=== PATIENT | female | born 1955 | race Caucasian/White ===

== ENCOUNTER 2021-08-25 10:17 | Outpatient (CLI) | payer MEDICAID, SELFPAY ==
--- NOTE | 2021-08-25 | DI.CT_ITS ---
Exam(s) CT ABDOMEN PELVIS W EXAM: CT ABDOMEN PELVIS W CLINICAL HISTORY: ABD PAIN R10.9 LT FLANK PAIN, FAM HX CANCER, HAS PRECANCEROUS CELLS. TECHNIQUE: Imaging Protocol: Axial computed tomography images with coronal and sagittal reformatted images were created and reviewed CONTRAST MATERIAL: Intravenous: Omnipaque 100cc Oral: Yes. Oral contrast was administered for bowel opacification. COMPARISON: No exams were available for comparison FINDINGS: VISUALIZED LUNG BASES: No nodules nor pleural effusions evident. ABDOMEN: There is no ascites. LIVER: There are no focal hepatic lesions evident . GALLBLADDER/BILIARY: The gallbladder surgically absent. There is no dilatation of intrahepatic ducts . CBD is not dilated. PANCREAS: There is a 6 x 5 millimeter hypodensity in the the pancreas at the junction of body and hetal l is either cyst or thank intra pancreatic cystic neoplasm. Pancreatic duct is not dilated SPLEEN: Spleen is not enlarged. No obvious intrasplenic lesions. Splenic and portal veins are paten t. ADRENALS: There are no significant adrenal masses. KIDNEYS:No cysts evident. No solid renal masses. No calculi nor hydronephrosis.. ABDOMINAL AORTA: Abdominal aorta is not enlarged. LYMPH NODES:There is no retroperitoneal nor paraaortic adenopathy. ABDOMINAL WALL: No evidence of significant anterior abdominal wall nor inguinal hernia. GI: There is no evidence of bowel obstruction, free air, nor abscess. There is an area of focal narr owing in rectosigmoid, either due to under distension or possible significant finding (series 4/image [id number]). PELVIS: GI: Appendix is difficult to identify but there is no obvious acute appendicitis.No evidence of sigmo id diverticulitis. LYMPH NODES: There is no intrapelvic nor inguinal adenopathy. REPRODUCTIVE: Uterus appears unremarkable. No abnormal adnexal masses. No free fluid in the pelvis. URINARY BLADDER: No calculi nor obvious masses evident OSSEOUS: Degenerative anterolisthesis of L3 upon L4 due to facet joint arthropathy. Vascular phenome non is seen within the L4-5 disc space. IMPRESSION: 1. The gallbladder surgically absent. The biliary tree is not dilated. 2. There is 6 x 5mm hypodensity in the pancreas at junction of body and tail, either small cyst or cy stic pancreatic neoplasm. Recommend repeat scan in 6 months. 3. No significant renal findings, given the history here. 4. Appendix is difficult to identify on this study. There is no evidence of obvious acute appendicit is. Other findings as above. RADIATION DOSE DELIVERED: 880.5mGy.cm Total DLP DATA REPOSITORY: All CT scans at this facility are submitted to the National Radiology Data Registry (NRDR) Dose Index Registry (DIR) with the [employer] (ACR). RADIATION OPTIMIZATION: All CT scans at this facility use at least one of these dose optimization te chniques: automated exposure control; mA and/or kV adjustment per patient size (includes targeted exa ms where dose is matched to clinical indication); or iterative reconstruction.
[2021-08-25] MEDS: Breeza Beverage 473 ML BTL PO (11:43)
[2021-08-25 11:44] LABS: Abs Immature Grans 0.02 10^3/uL (0.0-0.06); Absolute Basophil Count 0.02 10^3/uL (0.0-0.2); Absolute Eosinophil Count 0.12 10^3/uL (0.0-0.7); Absolute Lymphocyte Count 1.68 10^3/uL (1.2-3.4); Absolute Monocyte Count 0.39 10^3/uL (0.1-0.8); Absolute Neutrophil Count 2.78 10^3/uL (1.2-6.7); Basophils % 0.4; Eosinophils % 2.4; HCT 43.3 % (36.0-46.0); HGB 14.2 g/dL (11.2-15.7); Immature Grans % 0.4; Lymphocytes % 33.5; MCH 30.4 pg (27.0-33.0); MCHC 32.8 % (32.0-36.0); MCV 92.7 fL (80-95); MPV 8.9 fL (8.0-11.0); Monocytes % 7.8; Neutrophils % 55.5; Nucleated RBC 0 %; Platelet Count 281 10^3/uL (130-400); RBC 4.67 10^6/uL (3.93-5.22); RDW 12.4 % (11.7-14.6); RDW-SD 42.4 fL; WBC 5.01 10^3/uL (4.4-10.8)
[2021-08-25] MEDS: Omnipaque 350 MG/ML 50 ML BTL PO (11:44)
[2021-08-25 11:58] LABS: ALT 25 U/L (14-59); AST 18 U/L (15-37); Albumin 4.4 g/dL (3.4-5.0); Alkaline Phosphatase 87 U/L (46-116); Anion Gap 5.6 mmol/L (3-11); BUN 11 mg/dL (7-18); Bilirubin, Total 0.5 mg/dL (0.2-1.0); CO2 33.4 mmol/L (21.0-32.0); CREATININE 0.9 mg/dL (0.55-1.02); Calcium 9.6 mg/dL (8.5-10.1); Chloride 104 mmol/L (98-107); Glucose 87 mg/dL (74-106); Potassium 3.7 mmol/L (3.5-5.1); Sodium 143 mmol/L (136-145); Total Protein 8.2 g/dL (6.4-8.2)
[2021-08-25] MEDS: Omnipaque 350 MG/ML 100 ML BTL IV (14:00)
[2021-08-25] MEDS: Normal Saline - Diluent 50 ML VIAL IV (14:00)
[2021-08-25 19:36] LABS: Lipase 181 U/L (73-393)
== END 2021-08-25 10:37 ==
PROVIDERS: Visit Provider Physician Assistant Medical
DX: R10.9 Unspecified abdominal pain (principal); R93.5 Abnormal findings on diagnostic imaging of other abdominal regions, including retroperitoneum
CPT/HCPCS: 80053; 83690; 74177; 85025; J3490; Q9967

== ENCOUNTER 2021-09-22 02:54 | Outpatient (CLI) | payer MEDICAID, SELFPAY ==
[2021-09-22 13:13] LABS: Source Nasal/Nares
[2021-09-22 15:28] LABS: COVID-19 PCR Negative (Negative)
== END 2021-09-22 02:55 | disposition home or self-care (01) ==
LOC: LBO 02:54
PROVIDERS: PCP Family Medicine; Visit Provider Surgery
DX: Z20.822 Contact with and (suspected) exposure to COVID-19 (principal); Z01.818 Encounter for other preprocedural examination
CPT/HCPCS: 87635

== ENCOUNTER 2021-09-24 09:57 | Day surgery (SDC) | payer MEDICAID, SELFPAY ==
--- NOTE | 2021-09-22 14:46 | NUR.NOTE ---
Pt. verbalized concern over staying in the hospital 4-5 days, stated the when she spoke with the MD, that it could be a possibility. Per MD note, it did not mention anything regarding staying overnight, this RN spoke with Sidra RUTHERFORD at [facility] regarding this concern, Sidra stated she spoke with patient at length stating she is scheduled for a colonoscopy and a gastroscopy, and if there are polyps they will be removed at that time, if there a complication such as a perforation, that would require a longer stay. This was also restated by myself to patient, and that she would also see MD prior to procedure to validate concerns. Nursing Note:
--- NOTE | 2021-09-24 06:53 | ENDO_ITS ---
Date of service: 09/24/21 Time of Service: 11:37 Endoscopy Report DATE OF PROCEDURE: 09/24/21 PRE-OP DIAGNOSIS: Epigastric pain and abnormal CT scan POST-OP DIAGNOSIS: other (gastritis and mild esophagitis, colon polyps) PROCEDURE: 1. EGD with biopsies 2. Colonoscopy with polypectomy SURGEON: Glenna Vallejo ANESTHESIA TYPE: General:No Airway ESTIMATED BLOOD LOSS: 3 PATHOLOGY: other (Antrum bx, GE junction bx, desscending and sigmoid polyp) COMPLICATIONS: None DISPOSITION: same day INDICATIONS: A CT scan was done looking for diverticulitis. It was negative for diverticulitis but did show possible narrowing in the rectosigmoid area. I did review the CT scan myself. I do not see an actual mass. She does have a past history of having a polyp in 2003. She never had a follow-up colonoscopy. It does not look like there is a family history of colon cancer. She does have a history of several other cancers in her family. She suffers from IBS which is a chronic issue. She does have the occasional bright red blood on the tissue paper. She also has been complaining of increased bloating and on exam she is tender in the right upper quadrant and epigastric area. She is under increased stress due to her son having been diagnosed brain tumor. She will be his caregiver as he recovers from his surgery towards the end of September. I discussed with her doing a colonoscopy due to the abnormal CT scan and her history of polyps but also adding an upper endoscopy as she is quite tender in the epigastric area on exam. Both procedures were discussed in detail. We reviewed risks benefits and complications. Risks, benefits and complications have been reviewed. Complications include but are not limited to bleeding, pain, perforation, missed small lesion/polyp, sore throat, aspiration and adverse reaction to the medications. Questions were entertained and answered to their satisfaction and they wished to proceed. No guarantees were given or implied. Proceed with colonoscopy and upper endoscopy. PREP: Miralax/Dulcolax PROCEDURE START TIME: 11:37 PROCEDURE END TIME: 12:04 COLONOSCOPY RETRACTION TIME: 11 minutes FINDINGS: Upper- inflammation of the stomach and mild inflammation of the distal esophagus Lower- 2 small polyps PROCEDURE DESCRIPTION: After informed consent was obtained the patient was take to the procedure room and placed in a supine position. Monitors were applied and a time out was done. The patients name, date of , procedure type, allergies to medications and metal in their body was reviewed. A bite block was placed and the patient was sedated. Once sedated and comfortable the gastroscope was advanced through the oropharynx which was grossly normal into the esophagus. The proximal and mid- esophagus were normal. In the distal esophagus there was mild inflammation noted. The scope was advanced into the stomach and through the pylorus into the 3rd portion of the duodenum. The duodenum was noted to be normal. The scope was retracted back into the stomach. There was inflammation noted in the antrum and body. Biopsies were done to rule out H. pylori. There were no ulcers. The scope was retro-flexed. The cardia and fundus were noted to be normal. There was no hiatal hernia noted. The scope was retracted back into the esophagus and biopsies were done of the GE junction to rule out Beyer's. The Z line was regular. The GE junction was at 35 cm. While the patient was still sedated they were placed in a left decubitous position. A rectal exam was done. External exam was normal. Internal exam revealed a normal sphincter tone and no palpable masses. The prostate []. The scope was then introduced and retro-flexed. No internal hemorrhoids, masses or polyps were identified on retroflexion. The scope was then advanced to the cecum without difficulty. The ileocecal valve and appendiceal orifice were identified. The prep was adequate. The scope was then slowly retracted over 11 minutes back into the rectum. Polyps were removed with cold forceps in the descending colon and sigmoid colon. There was no diverticulosis noted. The scope was removed and the patient was woken up and taken back to Same day surgery in stable condition. The patient tolerated the procedure well and there were no immediate complications. Follow up: will depend on final pathology
--- NOTE | 2021-09-24 06:55 | PDOC.DSDIS_ITS ---
Discharge Plan Disposition Patient Disposition: HOME Condition: Good Discharge Details Reason For Visit: [place]/EGD Attending Provider: Glenna Vallejo Primary Care Provider: Bee Perkins Home Meds and New Rx's Prescriptions: New omeprazole 40 mg capsule,delayed release(DR/EC) 40 mg PO DAILY Qty: 30 RF: 3 Discontinued bisacodyl [Dulcolax (bisacodyl)] 5 mg tablet,delayed release (DR/EC) 5 mg PO ONCE Qty: 4 RF: 0 polyethylene glycol 3350 17 gram/dose powder 17 g PO ONCE Qty: 238 RF: 0 Discharge Instructions Instructions: Diet for Stomach Ulcers and Gastritis (ED), Gastritis (DC), Esophagitis (DC), Colorectal Polyps (DC) Additional Instructions: Findings: Inflammation of the stomach and esophagus 2 small polyps Follow up: depends on pathology results Please call if you develop: fevers >101.5 Nausea or Vomiting Abdominal pain that is not transient Rectal bleeding that is more then a tbsp A hard abdomen and inability to pass gas DAY SURGERY UNIT POST ENDOSCOPY INSTRUCTIONS Instructions for everyone who is given Anesthesia: For your safety, please do the following for the next 24 Hours: a. Do not drive or operate dangerous equipment b. Do not drink alcohol beverages or use any recreational drugs for the first 24 hours or while taking pain medications. The medications in your body may have a reaction that can be dangerous. c. Do not make any important decisions or sign any important papers 1. Generally there are no restrictions on your activity after a day or so has gone by, but you may feel a bit fatigued for a few days. 2. After you arrive home you may have a light meal and return to a normal diet as you can tolerate it without feeling sick to your stomach. 3. After surgery, you may feel pain or discomfort. This should be only transient, but if it persists please contact your doctor. 4. If there are any questions regarding the findings of your procedure, please feel free to contact your doctor. 6. If you are unable to contact your doctor with a problem, contact the hospital at [phone]. 7. Continue all your regular medications unless directed otherwise. I understand the above instructions and have no questions. Signature of Patient or Responsible Adult Escort Date/Time Name of Responsible Adult Escort Signature of Nurse Date/Time Activity:: Activity as Tolerated Diet:: low acid Discharge Orders Discharge Orders: Discharge Order (Routine); Ordered 09/24/21 Ordered By: Glenna Vallejo
--- NOTE | 2021-09-24 07:33 | W.ANESPRE ---
General Info Date of Service Date Performed: 09/24/21 Height: 5 ft 4 in Weight: 70.76 kg Body Mass Index (BMI): 26.7 Surgical Procedure: Operation Date: 09/24/21 11:05 Proposed Procedures Side Surgeon p Colonoscopy/Gastroscopy Glenna Vallejo MD Meds Allergies and Home Medications Allergies Allergy/AdvReac Type Severity Reaction Status Date / Time aspirin Allergy Severe unknown Verified 09/24/21 10:07 Current Visit Medications: Current Medications Generic Name Dose Route Start Last Admin Trade Name Freq PRN Reason Stop Dose Admin Hyoscyamine Sulfate 0.125 mg 09/24/21 06:55 Hyoscyamine 0.125 Mg Sl/Oral/Chew SL DIRECTED PRN Ringer's Solution 1,000 mls @ 80 mls/hr 09/24/21 06:00 IV 10/07/21 23:59 INFUSION MOMO IV Miscellaneous Supplies 1 each 09/24/21 06:00 Iv Access IV 10/07/21 23:59 DIRECTED MOMO Ondansetron HCl 4 mg 09/24/21 06:55 Ondansetron 4 Mg/2 Ml Vial IVP Q4H PRN PRN Nausea / Vomiting Sodium Chloride 0 ml 09/24/21 06:00 Normal Saline Flush 10 Ml Syr IV 10/07/21 23:59 PRN PRN Sodium Chloride 0 ml 09/24/21 06:00 Normal Saline 10 Ml Vial IJ 10/07/21 23:59 DIRECTED PRN Sterile Water 0 ml 09/24/21 06:00 Water,Injection,Sterile 10 Ml Vial IJ 10/07/21 23:59 DIRECTED PRN PFSH Active Problems Active Problems: Problem Status Onset Code Abnormal CT scan, colon R93.3 Abdominal pain R10.9 Back pain M54.9 Medical History Active Problem List Abnormal CT scan, colon (Acute) Abdominal pain (Acute) Back pain (Acute) Medical History Fibromyalgia Hx of adenomatous colonic polyps Hypoglycemia IBS (irritable bowel syndrome) Shoulder pain Surgical History Surgical History S/P colonoscopy S/P laparoscopic cholecystectomy Tobacco Smoking/Tobacco Use Status: Former Tobacco Use Alcohol Alcohol Intake: former Year quit: 2020 Details: stopped drinking to try and keep son sober Substance Use Substance use: Never Substance use type: does not use Vital Signs and Lab Results Lab Results Blood Type / Crossmatch: No Data to Display Complete Blood Count: White Blood Count 5.01 10^3/uL (4.4-10.8) 08/25/21 11:40 08/25/21 Red Blood Count 4.67 10^6/uL (3.93-5.22) 08/25/21 11:40 08/25/21 Hemoglobin 14.2 g/dL (11.2-15.7) 08/25/21 11:40 08/25/21 Hematocrit 43.3 % (36.0-46.0) 08/25/21 11:40 08/25/21 Platelet Count 281 10^3/uL (130-400) 08/25/21 11:40 08/25/21 Complete Metabolic Panel: Sodium Level 143 mmol/L (136-145) 08/25/21 11:40 08/25/21 Potassium Level 3.7 mmol/L (3.5-5.1) 08/25/21 11:40 08/25/21 Chloride Level 104 mmol/L (98-107) 08/25/21 11:40 08/25/21 Carbon Dioxide Level 33.4 mmol/L (21.0-32.0) H 08/25/21 11:40 08/25/21 Blood Urea Nitrogen 11 mg/dL (7-18) 08/25/21 11:40 08/25/21 Creatinine 0.9 mg/dL (0.55-1.02) 08/25/21 11:40 08/25/21 Estimated GFR/1.73 m2 >= 60.00 (mL/min/1.73m2) 08/25/21 11:40 08/25/21 Calcium Level 9.6 mg/dL (8.5-10.1) 08/25/21 11:40 08/25/21 Albumin 4.4 g/dL (3.4-5.0) 08/25/21 11:40 08/25/21 Glucose Level 87 mg/dL (74-106) 08/25/21 11:40 08/25/21 Liver Function Panel: Alanine Aminotransferase (ALT/SGPT) 25 U/L (14-59) 08/25/21 11:40 08/25/21 Aspartate Amino Transf (AST/SGOT) 18 U/L (15-37) 08/25/21 11:40 08/25/21 Coagulation Panel: No Data to Display Cardiac Panel: No Data to Display Arterial Blood Gas: No Data to Display Venous Blood Gas: No Data to Display Pancreas Panel: Lipase 181 U/L (73-393) 08/25/21 11:40 08/25/21 Thyroid Panel: No Data to Display Infectious Disease: Coronavirus (COVID-19)(PCR) Negative (Negative) 09/22/21 11:42 09/22/21 Coronavirus 2019 Source Nasal/Nares 09/22/21 11:42 09/22/21 Blood Cultures: No Data to Display Toxicology Panel: No Data to Display Anesthesia Assessment and Plan Anesthesia History Personal History: No History of Anesthesia Complications and Other (Prolonged emergence) Family History: No Family History of Anesthesia Complications Exercise Tolerance Exercise Tolerance: Metabolic Equivalents>4 Pertinent Negatives Pertinent Negatives: No Symptoms of GERD, No Major Cardiovascular Symptoms or Complaints, No Major Pulmonary Symptoms or Complaints and No History of CVA/TIA Cardiac & Pulmonary Exam Cardiac Exam: Normal S1/S2 Heart Sounds Pulmonary Exam: Clear Bilateral Breath Sounds Implantable Cardiac Device Does patient have a Pacemaker or an ICD?: No Airway Exam Known Difficult Airway: No Mallampati Class: 2 Mouth Opening: Normal (> 3cm) Thyromental Distance: Greater than 3 cm Neck Range of Motion: Full ROM Neck Circumference: Normal Teeth Condition: Generalized Poor Dentition (Post in front tooth) ASA Classification ASA Score: ASA 2 Emergency Case?: No NPO Status NPO Status: NPO Clears >2 hours, Solids >8 hours Anesthesia Plan Resuscitation Status: Full Code Anesthesia Technique: General Anesthesia Airway Planned: Natural Airway Monitors Used: Standard Monitors
[2021-09-24 10:17] VITALS: BP 103/82; PULSE 68; RESP 18; TEMP 36.3; O2SAT 98
[2021-09-24] MEDS: Lactated Ringers 1,000 ML 80 ML IV (10:43)
[2021-09-24 11:07] VITALS: BMI 26.7
--- NOTE | 2021-09-24 11:38 | STOM_PTH ---
PATIENT: Jojo Lofton LOC: [facility] U#:[id number] AGE/SX: 65/F ROOM: RE09/24/[address]: Glenna Vallejo MD : 1955 BED: DIS: 09/24/2021 SPEC #: [id number] RECD: 09/24/21 12:40 STATUS: ZULLY REQ #: [id number] BROOKE: 09/24/21 11:[address]: Glenna Valljeo DEPT: Surgical [facility]imen RECD BY: Elizabeth Martines ENTERED: 09/24/21 12:42 SP TYPE: STOMACH OTHR DR: Bee Perkins Tissues: 1 - STOMACH BIOPSY 2 - ESOPHAGUS BIOPSY 3 - BIOPSY BOWEL 4 - BIOPSY BOWEL Procedures: GROSS AND MICRO LEVEL 4 IMMUNOPEROXIDASE STAIN Comments: [id number]
[2021-09-24 12:12] VITALS: BP 123/78; PULSE 63; RESP 16; TEMP 36; O2SAT 97
[2021-09-24 12:42] VITALS: BP 111/74; PULSE 61; RESP 18; TEMP 36.3; O2SAT 100
--- NOTE | 2021-09-24 13:07 | W.ANESPOSTOP ---
Postoperative Evaluation Date, Time and Location Date Performed: 09/24/21 Time Performed: 13:09 Patient Location: Day Surgery Unit Vital Signs Most Recent Imported Vital Signs: Most Recent Vital Signs Temp Pulse Resp BP Pulse Ox 36.3 C L 61 18 111/74 100 09/24/21 12:42 09/24/21 12:42 09/24/21 12:42 09/24/21 12:42 09/24/21 12:42 Pain Score Most Recent Pain Score: Most Recent Pain Score Pain Level 0 09/24/21 12:42 Assessment Mental Status: Awake (Alert & Oriented to Patient Baseline) Airway and Respiratory Function: Patent airway with normal (patient baseline) respiratory exam Cardiovascular Function: Hemodynamically Stable Hydration Status: Adequately Hydrated Nausea & Vomiting: No Nausea or Vomiting Pain: Pt. Denies Any Pain Peripheral Nerve Block: Patient did not receive a nerve block
== END 2021-09-24 13:33 | disposition home or self-care (01) ==
LOC: SUR 09:58
PROVIDERS: PCP Family Medicine; Visit Provider Surgery
PROC: (CPT 45380; principal; 2021-09-24 11:00)
DX: R10.13 Epigastric pain (principal); K29.50 Unspecified chronic gastritis without bleeding; K63.5 Polyp of colon; K21.00 Gastro-esophageal reflux disease with esophagitis, without bleeding; Z86.010 Personal history of colon polyps; R93.3 Abnormal findings on diagnostic imaging of other parts of digestive tract; K22.70 Barrett's esophagus without dysplasia
CPT/HCPCS: 45380; 43239; 88305; 88361

== ENCOUNTER 2021-09-29 16:55 | Outpatient (REF) | payer MEDICAID, SELFPAY ==
[2021-09-29 18:55] LABS: Calculated LDL 125 mg/dL (<100); Cholesterol 236 mg/dL (<200); HDL Cholesterol 101 mg/dL (40-60); Triglyceride 54 mg/dL (<150)
[2021-10-01 09:40] LABS: HIV-1/2 Ag & Ab Screen Negative (Negative)
[2021-10-01 11:29] LABS: Hepatitis C Ab w Rflx HCV PCR Negative (Negative)
== END 2021-09-29 16:56 | disposition home or self-care (01) ==
LOC: NCHCN 16:55
PROVIDERS: PCP Family Medicine; Visit Provider Family Medicine
DX: Z11.4 Encounter for screening for human immunodeficiency virus [HIV] (principal); Z11.59 Encounter for screening for other viral diseases; Z13.220 Encounter for screening for lipoid disorders
CPT/HCPCS: 80061; 86803; 87389

== ENCOUNTER 2021-10-29 11:56 | Outpatient (REF) | payer MEDICAID, SELFPAY ==
--- NOTE | 2021-10-29 11:00 | PAPFT_PTH ---
PATIENT: Jojo Lofton [facility] U[facility][id number] AGE/SX: 66/F ROOM: RE10/29/[address]: Bee Perkins : 1955 BED: DIS: 10/29/2021 SPEC #: [id number] RECD: 10/29/21 18:44 STATUS: ZULLY RERosy #: [id number] BROOKE: 10/29/21 11:[address]: Bee Perkins DEPT: [facility] Cytology RECD BY: Elizabeth Martines Tissues: 1 - CX/ENDOCX FOR PAP SMEARS Procedures: PAP THIN PREP/UVM Screening HPV DNA PROBE Comments: [id number] (CHLAMYDIA/GC)
[2021-10-30 15:48] LABS: Chlamydia Result Negative (Negative); GC Result Negative (Negative)
== END 2021-10-29 11:57 | disposition home or self-care (01) ==
LOC: NCHCN 11:56
PROVIDERS: PCP Family Medicine; Visit Provider Family Medicine
DX: Z12.4 Encounter for screening for malignant neoplasm of cervix (principal); Z11.51 Encounter for screening for human papillomavirus (HPV); Z11.3 Encounter for screening for infections with a predominantly sexual mode of transmission; Z01.419 Encounter for gynecological examination (general) (routine) without abnormal findings
CPT/HCPCS: 87491; 87591; 88142; 87624

== ENCOUNTER 2021-12-09 00:08 | Outpatient (CLI) | payer MEDICAID, SELFPAY ==
--- NOTE | 2021-12-09 | DI.MAMMO_ITS ---
Exam(s) MAMMO SCREENING EXAM: MAMMO SCREENING CLINICAL HISTORY: SCREENING FOR BREAST CANCER Z12.39 TECHNIQUE: Bilateral full field digital CC and MLO mammographic images were obtained with 3D tomosyn thesis and utilizing computer aided detection (CAD). COMPARISON: Available for comparison. FINDINGS: Masses/Architectural Distortion: None seen. Microcalcifications: No suspicious pleomorphic-type are seen. Skin Thickening/Nipple Retraction: None. IMPRESSION: 1. No significant interval change with no specific features of malignancy noted. 2. Unless there is more urgent need, screening mammography is recommended, as per [employer] [place] [employer] guidelines. BI-RADS Category 1 - Negative Breast Density - Category B - Scattered areas of fibroglandular density Breast density category C or D implies that the patient has dense breast tissue. Dense breast tissue is very common and is not abnormal but dense breast tissue can make it harder to find cancer on a ma mmogram. Also, dense breast tissue may increase their breast cancer risk. This information about the result of the mammogram report was provided to the patient to raise their awareness. Use this report when you speak with the patient about their risks for breast cancer, which includes their family hist ory. At that time, you may recommend for more screening tests (Ultrasound or MRI) as they might be us eful based on their risk. A negative radiographic report should not delay biopsy if a dominant or clinically suspicious mass is present. Up to ten percent of cancers are not identified on mammography. A negative report may reinforce clinical impression. Adenosis and dense breasts may obscure an underlying neoplasm. False positive reports average 6 to 10%. Patient will receive a letter notifying them of these results.
--- NOTE | 2021-12-09 13:38 | DI.RAD_ITS ---
Exam(s) XR KNEE RT 3V AP,LAT,TIKA EXAM: XR KNEE RT 3V AP,LAT,TIKA CLINICAL HISTORY: RT KNEE PAIN M25.561. TECHNIQUE: 2D digital imaging was performed of the right knee. Four views obtained. AP, PA tunnel a nd lateral views were obtained. COMPARISON: No exams were available for comparison FINDINGS: BONES: No acute fracture is present. No bony destructive lesion is seen. JOINTS: The knee is normally aligned. No joint effusion is seen. SOFT TISSUE: Normal. IMPRESSION: Unremarkable radiographs of the right knee. DATA REPOSITORY: RADIATION DOSE DELIVERED:
== END 2021-12-09 00:28 ==
PROVIDERS: PCP Family Medicine; Visit Provider Family Medicine
DX: M25.561 Pain in right knee (principal); Z12.31 Encounter for screening mammogram for malignant neoplasm of breast
CPT/HCPCS: 73562; 77063; 77067

== ENCOUNTER 2021-12-11 11:13 | Outpatient (CLI) | payer MEDICAID, SELFPAY ==
--- NOTE | 2021-12-11 11:10 | DI.RAD_ITS ---
Exam(s) XR KNEE RT 1V EXAM: XR KNEE RT 1V CLINICAL HISTORY: eval R knee pain TECHNIQUE: COMPARISON: CR XR KNEE RT 3V AP,LAT,TIKA from 12/09/2021 FINDINGS: Single Merchant view was obtained. Patellar alignment appears within normal limits. No bony or soft tissue abnormality seen. IMPRESSION: RADIATION DOSE DELIVERED: Total DLP
== END 2021-12-11 11:14 | disposition home or self-care (01) ==
LOC: DIORS 11:14
PROVIDERS: PCP Family Medicine; Referring Provider Family Medicine; Visit Provider Student in an Organized Health Care Education/Training Program
DX: M25.561 Pain in right knee (principal)
CPT/HCPCS: 73560

== ENCOUNTER 2022-03-09 00:59 | Outpatient (CLI) | payer MEDICAID, SELFPAY ==
--- NOTE | 2022-03-09 | DI.CT_ITS ---
Exam(s) CT ABDOMEN PELVIS W EXAM: CT ABDOMEN PELVIS W CLINICAL HISTORY: F/U PANCREATIC CYST, K86.2. TECHNIQUE: Imaging Protocol: Axial computed tomography images with coronal and sagittal reformatted images were created and reviewed CONTRAST MATERIAL: Intravenous: Omnipaque 350 Contrast volume:100 ml Oral: yes / COMPARISON: CT CT ABDOMEN PELVIS W from 08/25/2021 FINDINGS: ABDOMEN: Lung Bases: Normal where visualized. Heart size normal. Liver: Normal density. No measurable mass. Gallbladder and biliary tract: No radiodense calculus or dilation. Pancreas: Normal density, no abnormal calcifications or inflammatory process. No cyst or mass is visi ble. Spleen: Normal. Kidneys: Normal size, contour and axis. No radiodense stones or obstructive uropathy. No masses seen. Adrenal glands: No masses seen. Abdominal Aorta: Abdominal portion non-dilated. Mild atherosclerotic changes. PELVIS: Bladder: No gross wall thickening. No calculi.No focal mass. Bowel: Moderate to increased stool. No obstruction or bowel wall thickening. Appendix normal. Peritoneal cavity: No ascites, collection or mesenteric inflammatory response. Bones: Degenerative changes in the lumbar spine, within normal limits for age. Reproductive organs: Within normal limits. Lymph nodes: Unremarkable. Impression: Unremarkable CT scan of the abdomen and pelvis. No pancreatic cyst or mass is identified. RADIATION DOSE DELIVERED: 891.19mGy.cm Total DLP DATA REPOSITORY: All CT scans at this facility are submitted to the National Radiology Data Registry (NRDR) Dose Index Registry (DIR) with the [employer] (ACR). RADIATION OPTIMIZATION: All CT scans at this facility use at least one of these dose optimization te chniques: automated exposure control; mA and/or kV adjustment per patient size (includes targeted exa ms where dose is matched to clinical indication); or iterative reconstruction.
[2022-03-09] MEDS: Omnipaque 350 MG/ML 50 ML BTL PO (10:03)
[2022-03-09] MEDS: Breeza Beverage 473 ML BTL PO ×2 (10:03→10:04)
[2022-03-09] MEDS: Omnipaque 350 MG/ML 100 ML BTL IJ (11:18)
== END 2022-03-09 01:19 ==
PROVIDERS: PCP Family Medicine; Visit Provider Family Medicine
DX: K86.2 Cyst of pancreas (principal)
CPT/HCPCS: 74177; J3490; Q9967

== ENCOUNTER 2022-03-13 21:46 | Outpatient (REF) | payer MEDICAID, SELFPAY ==
[2022-03-13 18:56] LABS: HGB 13.1 g/dL (11.2-15.7); MCH 29.8 pg (27.0-33.0); MCHC 32.8 % (32.0-36.0); MCV 91 fL (80-95); MPV 9.7 fL (8.0-11.0); Platelet Count 299 10^3/uL (130-400); RBC 4.39 10^6/uL (3.93-5.22); RDW 12.6 % (11.7-14.6); RDW-SD 42.2 fL; WBC 5.35 10^3/uL (4.4-10.8)
[2022-03-13 19:47] LABS: Ferritin 73 ng/mL (8-252)
[2022-03-13 20:18] LABS: Iron 96 ug/dL (50-170); Total Iron Binding Capacity 329 ug/dL (250-450); Transferrin Sat 29 % (15-50)
== END 2022-03-13 21:47 | disposition home or self-care (01) ==
LOC: NCHCN 21:46
PROVIDERS: PCP Family Medicine; Visit Provider Family Medicine
DX: Z13.0 Encounter for screening for diseases of the blood and blood-forming organs and certain disorders involving the immune mechanism (principal); Z78.0 Asymptomatic menopausal state
CPT/HCPCS: 85027; 82728; 83540; 83550

== ENCOUNTER 2022-03-31 14:00 | Outpatient (CLI) | payer MEDICAID, SELFPAY ==
--- NOTE | 2022-03-31 13:45 | DI.RAD_ITS ---
Exam(s) XR SHOULDER LT COMPLETE 2+V EXAM: XR SHOULDER LT COMPLETE 2+V CLINICAL HISTORY: pain in shoulder TECHNIQUE: COMPARISON: CR XR SHOULDER RT COMPLETE 2+V from 03/31/2022 FINDINGS: Two views were obtained. There is mild narrowing of the cartilaginous joint space of the glenohumera l joint and there are mild marginal osteophytes of the humeral head and glenoid. Mild hypertrophic d egenerative changes of AC joint also noted. Note is also made of a soft tissue calcification, nonspecific, projected anterior to the proximal hum eral diaphysis. This could be associated with biceps tendinitis. Please correlate clinically. IMPRESSION: RADIATION DOSE DELIVERED: Total DLP
--- NOTE | 2022-03-31 13:45 | DI.RAD_ITS ---
Exam(s) XR SHOULDER RT COMPLETE 2+V EXAM: XR SHOULDER RT COMPLETE 2+V CLINICAL HISTORY: RIGHT SHOULDER PAIN TECHNIQUE: COMPARISON: No exams were available for comparison FINDINGS: Three views were obtained. There is amorphous soft tissue calcification which appears to be associat ed with the distal supraspinatus tendon, the findings are consistent with acute calcific periarthriti s. Cartilaginous joint space of the glenohumeral joint is well maintained. Mild marginal osteophyte formation of the glenoid is noted. Mild hypertrophic degenerative changes of the AC joint also note d. IMPRESSION: Findings consistent with inflammatory process associated with supraspinatus tendon as described above . Acute calcific periarthritis/peritendinitis. RADIATION DOSE DELIVERED: Total DLP
== END 2022-03-31 14:01 | disposition home or self-care (01) ==
LOC: DIORS 14:00
PROVIDERS: PCP Family Medicine; Referring Provider Family Medicine; Visit Provider Student in an Organized Health Care Education/Training Program
DX: M25.511 Pain in right shoulder (principal); M25.512 Pain in left shoulder; M75.01 Adhesive capsulitis of right shoulder; M75.31 Calcific tendinitis of right shoulder; M75.22 Bicipital tendinitis, left shoulder
CPT/HCPCS: 73030

== ENCOUNTER → 2022-04-24 00:06 | Outpatient (CLI) | payer MEDICAID, SELFPAY ==
--- NOTE | 2022-04-24 14:25 | DI.RAD_ITS ---
Exam(s) XR FOOT RT COMPLETE EXAM: XR FOOT RT COMPLETE CLINICAL HISTORY: RT FOOT PAIN M79.671 TECHNIQUE: COMPARISON: No exams were available for comparison FINDINGS: Three views were obtained. There is no evidence of acute fracture or dislocation. IMPRESSION: RADIATION DOSE DELIVERED: Total DLP
--- NOTE | 2022-04-24 14:40 | DI.DEXA_ITS ---
Exam(s) XR DEXA BONE DENSITY W/WO MADELINE EXAM: XR DEXA BONE DENSITY W/WO MADELINE CLINICAL HISTORY: POSTMENOPAUSAL Z78.0 SCREENING FOR OSTEOPOROSIS TECHNIQUE: COMPARISON: No exams were available for comparison FINDINGS: DEXA scan was performed according to the usual protocol. Please see the accompanying data sheets. Lumbar spine scanning shows T-score -0.8. Left hip scanning shows T-score -1.0 with left femoral neck T-score -1.4. Left forearm scanning shows T-score -1.1. IMPRESSION: The findings are consistent with osteopenia according to the WHO criteria. The lateral vertebral sca nogram shows no evidence of a vertebral compression fracture. RADIATION DOSE DELIVERED: Total DLP
== END ==
PROVIDERS: PCP Family Medicine; Visit Provider Family Medicine
DX: Z13.820 Encounter for screening for osteoporosis (principal); Z78.0 Asymptomatic menopausal state; M79.671 Pain in right foot
CPT/HCPCS: 77080; 73630

== ENCOUNTER 2023-01-11 02:08 | Outpatient (CLI) | payer MEDICAID, SELFPAY ==
--- NOTE | 2023-01-11 17:50 | DI.MAMMO_ITS ---
Exam(s) MAMMO SCREENING EXAM: MAMMO SCREENING CLINICAL HISTORY: SCREENING, Z12.39. TECHNIQUE: Bilateral full field digital CC and MLO mammographic images were obtained with 3D tomosyn thesis and utilizing computer aided detection (CAD). COMPARISON: Prior mammograms were reviewed. FINDINGS: There has been no significant change in the appearance and distribution of the fibroglandular tissue. There are no CAD designations. There are no new spiculated masses nor malignant appearing microcalcification groups. There is no significant architectural distortion nor skin thickening-retraction. IMPRESSION: No radiographic evidence of malignancy. BI-RADS Category 1 - Negative Breast Density - Category B - Scattered areas of fibroglandular density Breast density Category C or D implies that the patient has dense breast tissue. Dense breast tissue can make it harder to find cancer on a mammogram. Dense breast tissue is also associated with an incr eased risk of breast cancer. This information about the result of the mammogram report was provided to the patient to raise their awareness. Use this report when you speak with the patient about their risks for breast cancer, which includes their family history. At that time, you may recommend additional screening tests (Ultrasoun d or MRI) as these tests may add significant information. A negative radiographic report should not delay biopsy if a dominant or clinically suspicious mass is present. Up to ten percent of cancers are not identified on mammography. A negative report may reinforce clinical impression. Adenosis and dense breasts may obscure an underlying neoplasm. False positive reports average 6 to 10%. Patient will receive a letter notifying them of these results.
== END 2023-01-11 02:28 ==
LOC: DI 02:09
PROVIDERS: PCP Family Medicine; Visit Provider Family Medicine
DX: Z12.31 Encounter for screening mammogram for malignant neoplasm of breast (principal)
CPT/HCPCS: 77063; 77067

== ENCOUNTER 2023-05-24 18:16 | Outpatient (REF) | payer MEDICAID, SELFPAY ==
[2023-05-24 19:02] LABS: HCT 40.3 % (36.0-46.0); HGB 13.6 g/dL (11.2-15.7); MCH 30.4 pg (27.0-33.0); MCHC 33.7 % (32.0-36.0); MCV 90 fL (80-95); MPV 9.6 fL (8.0-11.0); Platelet Count 266 10^3/uL (130-400); RBC 4.48 10^6/uL (3.93-5.22); RDW 12.6 % (11.7-14.6); RDW-SD 41.9 fL; WBC 5.04 10^3/uL (4.4-10.8)
[2023-05-24 19:22] LABS: Anion Gap 8.1 mmol/L (3-11); BUN 10 mg/dL (7-18); CO2 28.9 mmol/L (21.0-32.0); CREATININE 0.9 mg/dL (0.55-1.02); Calcium 9.6 mg/dL (8.5-10.1); Chloride 106 mmol/L (98-107); Estimated GFR 70.51 (mL/min/1.73m2); Glucose 133 mg/dL (74-106); NT-proBNP 44 pg/mL (<300); Potassium 3.7 mmol/L (3.5-5.1); Sodium 143 mmol/L (136-145); TSH (W/Ref FT4) 0.84 uIU/mL (0.36-3.74)
[2023-05-26 09:54] LABS: IgA 170 mg/dL (85-499)
[2023-05-26 12:19] LABS: Tissue Transglutaminase IgA <1.2 U/mL (<4.0)
== END 2023-05-24 18:17 | disposition home or self-care (01) ==
LOC: NCHCN 18:16
PROVIDERS: PCP Family Medicine; Visit Provider Family Medicine
DX: R10.9 Unspecified abdominal pain (principal); R13.10 Dysphagia, unspecified; R53.83 Other fatigue
CPT/HCPCS: 80048; 82784; 85027; 83880; 84443

== ENCOUNTER 2023-05-28 00:58 | Outpatient (CLI) | payer MEDICAID, SELFPAY ==
--- NOTE | 2023-05-28 10:27 | DI.RAD_ITS ---
Exam(s) RF BARIUM SWALLOW EXAM: RF BARIUM SWALLOW CLINICAL HISTORY: DYSPHAGIA,R13.10 TECHNIQUE: 2D and realtime digital imaging was performed. CONTRAST MATERIAL: Thick and thin barium and barium tablet were administered. COMPARISON: CR CERVICAL SP. LIMITED (TRAUMA) from 01/05/2013 FINDINGS: The PA and lateral chest films show normal heart size and clear lung singh. The lateral mobile application engineer view of the neck is shows degenerative changes at C4-5 through C7-T1. Airway and epiglottis appear normal . Esophagus: The patient swallowed barium without difficulty. Noevidence for mucosal erosions. Nofold thickening. No mass is visible. Nostricture. Motility: There is a normal primary stripping wave. No tertiary contractions were noted. There is a small sliding hiatal hernia. Moderategastroesophageal reflux was observed when the patient was supine.. IMPRESSION: Small sliding hiatal hernia and moderate gastroesophageal reflux. RADIATION DOSE DELIVERED: benjamin Zavala=13.7 mGy
[2023-05-28] MEDS: Simethicone/Sod Bicarb/Cit Ac, 4 gram PACKET 1 PACKET PO (10:33)
[2023-05-28] MEDS: Barium Sulfate 700 MG TAB PO (10:36)
[2023-05-28] MEDS: Barium Sulfate 60% W/V 355 ML BTL PO (10:37)
[2023-05-28] MEDS: Barium Sulfate 98% W/W 140 ML BTL PO (10:37)
== END 2023-05-28 01:18 ==
LOC: DI 00:58
PROVIDERS: PCP Family Medicine; Visit Provider Family Medicine
DX: K21.00 Gastro-esophageal reflux disease with esophagitis, without bleeding; Q40.1 Congenital hiatus hernia
CPT/HCPCS: 74221; J3490

== ENCOUNTER 2023-06-28 05:06 | Outpatient (CLI) | payer MEDICAID, SELFPAY ==
[2023-06-28] MEDS: Albuterol HFA 18 GM 200 PUFF INH IH (16:48)
[2023-06-28] MEDS: Inhaler, Assist Device 1 EACH MC (16:49)
--- NOTE | 2023-07-02 07:19 | W.PFT ---
Date of service: 06/28/23 Time of Service: 14:59 Pulmonary Function Test Result Indications: Dyspnea Interpretation Spirometry: There is no airflow limitation. No significant bronchodilator response Lung Volumes: Normal lung volumes Diffusion Capacity: Normal diffusion. Airway Pressure: Normal airways resistance Impression Normal pulmonary function testing. Clinical Correlation therefore is recommended.
== END 2023-06-28 05:07 | disposition home or self-care (01) ==
PROVIDERS: PCP Family Medicine; Visit Provider Family Medicine
DX: R06.00 Dyspnea, unspecified (principal); J98.01 Acute bronchospasm
CPT/HCPCS: 94060; 94726; 94729

== ENCOUNTER 2023-07-30 15:38 | Outpatient (REF) | payer MEDICAID, SELFPAY ==
[2023-07-30 18:50] LABS: C-Reactive Protein 0.15 mg/dL (0.0-0.3)
[2023-07-30 20:06] LABS: Hemoglobin A1C 5.6 % (<5.7)
[2023-08-02 09:49] LABS: Cyclic Citrullinated Peptide <2.5 U/mL (<5.0)
[2023-08-02 16:07] LABS: ANA Interpretation Positive (Negative); ANA Titer Pattern 1:320 Homogeneous
== END 2023-07-30 15:39 | disposition home or self-care (01) ==
LOC: NCHCN 15:38
PROVIDERS: PCP Family Medicine; Visit Provider Family Medicine
DX: M25.511 Pain in right shoulder (principal); M25.69 Stiffness of other specified joint, not elsewhere classified; R73.9 Hyperglycemia, unspecified; R76.0 Raised antibody titer
CPT/HCPCS: 86200; 83036; 86038; 86140

== ENCOUNTER 2023-08-11 17:04 | Outpatient (CLI) | payer MEDICAID, SELFPAY ==
[2023-08-13 14:13] LABS: dsDNA Ab, IgG <12.3 IU/mL (<30.0)
[2023-08-13 15:09] LABS: RNP Ab, IgG 0.9 Units (<20.0); SS-A Antibody 1.1 Units (<20.0); SS-B (La) Ab, IgG 1.3 Units (<20.0); Sm (Smith) Ab, IgG 1.6 Units (<20.0)
== END 2023-08-11 17:05 | disposition home or self-care (01) ==
LOC: LBO 17:05
PROVIDERS: PCP Family Medicine; Visit Provider Family Medicine
DX: M25.511 Pain in right shoulder (principal)
CPT/HCPCS: 36415; 86225; 86235

== ENCOUNTER → 2023-08-30 02:26 | Outpatient (CLI) | payer MEDICAID, SELFPAY ==
--- NOTE | 2023-08-30 15:08 | DI.US_ITS ---
APPROVED REPORT EXAM: Comprehensive 2D, Doppler, and color-flow Echocardiogram Patient Location: Out-Patient Smt Machine Operator: Salinas Claros RDCS (AE) Indications: TRACY Other Information Study Quality: Good Conclusion Normal left ventricular wall thickness and chamber size. Ejection fraction is 60 to 65%. Wall motio n is normal Normal right ventricular size and systolic function Both atria are normal in size Trileaflet aortic valve without stenosis or regurgitation Normal mitral valve with moderate regurgitation Normal tricuspid valve with mild regurgitation Dilated ascending aorta measuring 3.86 cm Wall motion Left Ventricle The left ventricle is normal size. The left ventricular systolic function is normal. The left ventric ular ejection fraction is within the normal range. There is normal left ventricular wall thickness. T here is normal LV segmental wall motion. There is no ventricular septal defect visualized. LVEF is 60 -65%. Right Ventricle The right ventricle is normal size. The right ventricular systolic function is normal. Unable to asse ss PA pressure. Atria The left atrium size is normal. The right atrium size is normal. The interatrial septum is intact wit h no evidence for an atrial septal defect. Aortic Valve The aortic valve is normal in structure. Aortic valve is trileaflet. There is no aortic valvular sten osis. No aortic regurgitation is present. Mitral Valve The mitral valve is normal in structure. No evidence of mitral valve stenosis. Moderate mitral regurg itation Tricuspid Valve The tricuspid valve is normal in structure. There is no tricuspid valve stenosis. Mild tricuspid regu rgitation Pulmonic Valve The pulmonary valve is normal in structure. There is no pulmonic valvular stenosis. There is no pulmo jaylene valvular regurgitation. Great Vessels The aortic root is normal in size. The ascending aorta is mildly dilated. Aortic arch is normal in ca liber. IVC is normal in size and collapses >50% with inspiration. Pericardium There is no pericardial effusion. 2D Dimensions IVSD d PLAX 0.80 cm F: 0.6-1.0 Ao Root d 2.96 cm F: 2.7 - 3.3 LVPW d PLAX 0.70 cm F: 0.6 - 1.0 Ao Asc Diam d 3.86 cm F: 2.3 - 3.1 LVID d PLAX 4.37 cm F: 3.8 - 5.2 LVDs 2.97 cm F: 2.2 - 3.5 LV EF Teichholz 60.4 % FS 32.03 % LV EDV (Teich) 86.3 mL LV ESV (Teich) 34.2 mL Stroke Vol Index (Teich) 29.64 M-Mode TAPSE 2.17 cm (M/F) >1.7 Auto EF LV EDV A4C 83.7 mL LV EDV A2C 93.8 mL LV EDV BP 88.9 mL LV ESV A4C 32.3 mL LV ESV A2C 35.9 mL LV ESV BP 33.3 mL LVEF(%) A4C 61.5 % LVEF(%) A2C 61.7 % LVEF(%) BP 62.5 % LV SV A4C 51.5 ml LV SV A2C 57.9 ml LV SV BP 55.6 ml LV CO A4C 3.6 L/min LV CO A2C 4.1 L/min LV CO BP 3.9 L/min HR A4C 70.59 BPM HR A2C 71.43 BPM LV EDV Index (BP) LA Volume LA Length A4C 4.0 cm LA Length A2C LA Area A4C s 9.03 cm2 LA Area A2C s LA Vol A4C A-L 17.48 mL LA Vol A2C A-L LA Vol Biplane A-L LA Vol A4C MOD 16.3 mL LA Vol A2C MOD LA Vol BP MOD RA Volume RA Area A4C 8.6 cm2 RA ESV A4C (A-L) 15.6mL RA Vol/BSA A4C A-L RA Length A4C 4.0 cm RA ESV A4C (MOD) 14.9mL LV Diastology MV E' medial 0.082 (>0.07 m/s) MV E Vmax 0.68 (0.4-1.3 m/s) MV E/E' MED 8.27 (<14) MV A Vmax 0.75 (0.4-1.3 m/s) MV E' lateral 0.120 (>0.1 m/s) E/A Ratio 0.9 MV E/E' LAT 5.68 (<14) MV E' Average 0.101 m/s MV E/E'(average) 6.73 Aortic Valve AoV Vmax 1.37 m/s LVOT Vmax 1.25 m/s AoV Peak Grad 7.5 mmHg LVOT Peak Grad 6.3 mmHg AoV Area (Vmax) 2.08 cm2 LVOT VTI 0.279 m AoV VTI 0.316 m LVOT Mean Grad 3.2 mmHg AoV Mean Dejon. 0.92 m/s LVOT SV 63.06 mL AoV Mean Grad 3.9 mmHg LVOT Diam s 1.65 cm AoV Area (VTI) 2.00 cm2 Velocity Ratio 0.91 Mitral Valve MV DT 153 (160-240 msec) MR Vmax 5.53 m/s MV Vmax TIPS 0.84 m/s MR VTI 1.841 m MV Mean Grad 1.3 (<2mmHg) MR Peak Grad 122.3 mmHg MV VTI 0.296 m MR Mean Grad 101.2 mmHg MR PISA Radius 0.44 cm MR Aliasing Velocity 0.30 m/s Pulmonary Valve PV Vmax 0.85 (0.5-1.5 m/s) RVOT Vmax 0.80 m/s PV Peak Grad 2.9 mmHg RVOT Peak Gr. 2.5 mmHg PV Mean Dejon 0.61 m/s RVOT VTI 0.182 m PV Mean Grad 1.7 mmHg RVOT Mean Gr. 1.4 mmHg
== END ==
PROVIDERS: PCP Family Medicine; Visit Provider Family Medicine
DX: R06.00 Dyspnea, unspecified (principal)
CPT/HCPCS: 93306

== ENCOUNTER → 2023-09-10 01:00 | Outpatient (CLI) | payer MEDICAID, SELFPAY ==
--- NOTE | 2023-09-10 | DI.CT_ITS ---
Exam(s) CT CHEST WO EXAM: CT CHEST WO CLINICAL HISTORY: CHRONIC COUGH R05.3 GERD K21.9 TRACY R06.09 TECHNIQUE: Imaging Protocol: Axial computed tomography images with coronal and sagittal reformatted images were created and reviewed CONTRAST MATERIAL: Intravenous: Omnipaque 350 Contrast volume:structured data ml. COMPARISON: No exams were available for comparison FINDINGS: Pulmonary parenchyma: No consolidation. No dominant measurable mass. Incidental calcifications ant eroinferior right upper lobe and left lower lobe. Significant interstitial changes. No emphysematou s changes. Tracheobronchial tree: No bronchiectasis or mucous plugging. Mediastinum and Maria C: No dominant adenopathy or fluid collection. Pleura: No effusion. No pneumothorax. Heart: The heart is not dilated. Mild coronary artery calcifications are seen. Aorta: Thoracic aorta non-dilated. Mild atherosclerotic changes. Upper abdomen: Status post cholecystectomy. Bones: Milddegenerative changes in the spine. Soft tissues: Unremarkable. IMPRESSION: No acute abnormality. RADIATION DOSE DELIVERED: Total DLP DATA REPOSITORY: All CT scans at this facility are submitted to the National Radiology Data Registry (NRDR) Dose Index Registry (DIR) with the [employer] (ACR). RADIATION OPTIMIZATION: All CT scans at this facility use at least one of these dose optimization te chniques: automated exposure control; mA and/or kV adjustment per patient size (includes targeted exa ms where dose is matched to clinical indication); or iterative reconstruction.
== END ==
PROVIDERS: PCP Family Medicine; Visit Provider Family Medicine
DX: R05.3 Chronic cough (principal)
CPT/HCPCS: 71250

== ENCOUNTER 2024-04-17 18:09 | Outpatient (REF) | payer SELFPAY ==
[2024-04-17 18:25] LABS: HCT 41.1 % (36.0-46.0); HGB 13.7 g/dL (11.2-15.7); MCH 30.6 pg (27.0-33.0); MCHC 33.3 % (32.0-36.0); MCV 92 fL (80-95); MPV 9.6 fL (8.0-11.0); Platelet Count 272 10^3/uL (130-400); RBC 4.48 10^6/uL (3.93-5.22); RDW-SD 43.3 fL
[2024-04-17 19:03] LABS: Ferritin 88 ng/mL (8-252); Folate 10.7 ng/mL (8.6-20.0); Vitamin B12 173 pg/mL (193-986)
== END 2024-04-17 18:10 | disposition home or self-care (01) ==
LOC: NCHCN 18:09
PROVIDERS: PCP Family Medicine; Visit Provider Family Medicine
DX: K92.1 Melena (principal); R27.8 Other lack of coordination
CPT/HCPCS: 85027; 82607; 82728; 82746

== ENCOUNTER 2024-10-17 08:16 | Emergency (ER) | payer SELFPAY ==
[2024-10-17] VITALS (59 sets, daily range): BP systolic 101–167; BP diastolic 59–107; PULSE 52–91; RESP 10–25; TEMP 36.5–36.8; O2SAT 84–99
--- NOTE | 2024-10-17 08:15 | RT.EKG_ITS ---
APPROVED REPORT Exam: Resting ECG Reason for Exam: Chest Pain Patient Location: E HR:63 bpm ECG Measurements Heart Rate 63 AXIS DC 161 P 49 QRSd 94 QRS 16 QT 396 T 35 QTc 407 Conclusion Sinus rhythm...normal P axis, V-rate 60- 99 Narrow complex normal sinus rhythm at a rate of 63. Normal axis. Intervals within normal limits. N o ST segment abnormalities. No T wave versions. No prior for comparison.
--- NOTE | 2024-10-17 08:29 | ED.GENADUL_ITS ---
Discharge Plan Discharge Details Chief Complaint: Dizzy/Sync Primary Care Provider: Bee Perkins ED Provider: Dave Santillan Home Meds and New Rx's Prescriptions: No Action pantoprazole 40 mg tablet,delayed release (DR/EC) 40 mg PO BID pantoprazole [Protonix] 40 mg tablet,delayed release (DR/EC) 40 mg PO BID Qty: 60 12RF azelastine 137 mcg (0.1 %) aerosol,spray 1 spray intranasal BID PRN Rx Instructions: 1-2 sprays administer into each nostril baclofen 10 mg tablet 10 mg PO BID albuterol sulfate [Proventil HFA] 90 mcg/actuation HFA aerosol inhaler 2 puff inhalation Q6H PRN HPI General Date/Time Provider Initiated Documentation: 10/17/24 08:29 . HPI Narrative: MDM Chronic conditions affecting the care of the patient: [] History obtained from an outside historian: [] External record review: [] [Diagnostic interpretations performed by me: Per my independent interpretation chest x-ray shows: Per my independent interpretation EKG shows: ]Medications: [] Social determinants of health affecting disposition: [] Management discussed with: [] Treatment/interventions considered: [] Response to therapies provided: [] HPI [ ] Exam General: Well-appearing in no acute distress speaking in complete sentences. Head: Normocephalic, atraumatic. Eye:[Pupils equal, round reactive to light.] Extraocular eye movements intact. No conjunctival injection. No scleral icterus. Ear, nose, mouth, throat: Grossly normal inspection. Normal voice, handling secretions normally. Neck: Trachea midline. Cardiovascular: Well-perfused distal extremities. Respiratory: Nonlabored respiration. Gastrointestinal: Nondistended abdomen. Musculoskeletal: No edema. Moving all 4 extremities spontaneously. Skin: Normal for age and race, grossly normal temperature and turgor. No acute rash. Neurologic: Alert and appropriate, no apparent acute deficits. Psychiatric: Mood and manner are appropriate. Grooming and personal hygiene are appropriate. Related Data Home Medications ?Medication ?Instructions ?Recorded ?Confirmed albuterol sulfate 90 mcg/actuation 2 puff inhalation Q6H PRN 04/28/24 10/17/24 aerosol inhaler (Proventil HFA) azelastine 137 mcg (0.1 %) nasal 1 spray intranasal BID PRN 04/28/24 10/17/24 spray baclofen 10 mg tablet 10 mg PO BID 04/28/24 10/17/24 pantoprazole 40 mg tablet,delayed 40 mg PO BID 08/14/24 10/17/24 release pantoprazole 40 mg tablet,delayed 40 mg PO BID #60 tabs 08/14/24 10/17/24 release (Protonix) Previous Rx's ?Medication ?Instructions ?Recorded pantoprazole 40 mg tablet,delayed 40 mg PO BID #60 tabs 08/14/24 release (Protonix) Allergies Allergy/AdvReac Type Severity Reaction Status Date / Time aspirin AdvReac Severe Pt states Verified 10/17/24 08:24 causes ulcers General Stated Complaint: Dizzy/Sync FERMIN: 3 Course Vital Signs Vital signs: Vital Signs Temperature 36.8 C 10/17/24 08:18 Pulse 70 10/17/24 08:18 Respiratory Rate 18 10/17/24 08:18 Blood Pressure 151/107 H 10/17/24 08:18 Pulse Oximetry 94 10/17/24 08:18 Temperature 36.8 C 10/17/24 08:18 Temperature Source Oral 10/17/24 08:18 Pulse 70 10/17/24 08:18 Respiratory Rate 18 10/17/24 08:18 Blood Pressure 151/107 H 10/17/24 08:18 Pulse Oximetry 94 10/17/24 08:18 Medical Decision Making Quality:SDOH Health Related Social Needs: No Data to Display PFSH All Active Problems Chronic GERD (Acute) Tendinitis of long head of biceps brachii of left shoulder (Acute) Calcific tendinitis of right shoulder (Acute) Right patellofemoral syndrome (Acute) Right knee pain (Acute) Barretts esophagus (Acute) Hyperplastic colon polyp (Acute) Back pain (Acute) Abdominal pain (Acute) Abnormal CT scan, colon (Acute) Medical History Osteopenia Chronic cough Paresthesia Atypical chest pain Pancreatic cyst Shoulder pain Fibromyalgia Hypoglycemia IBS (irritable bowel syndrome) Hx of adenomatous colonic polyps Surgical History Hx of laparoscopy S/P colonoscopy (~09/2021) S/P laparoscopic cholecystectomy Family History Son Alcohol use disorder Brain cancer Mother Breast cancer Ovarian cancer Father Lung cancer Metastatic to Brain Social History Smoking/Tobacco Use Status: Former Tobacco Use tobacco type: cigarettes Quit Date: 11/08/85 Pack-years: 40 Smoking risk assessment performed?: Yes Alcohol Intake: former Year quit: 2020 Details: stopped drinking to try and keep son sober Drug use: Never Substance use type: does not use Household members: spouse and children Housing: house Current gender identity: female Do you feel safe at home: Yes Do you feel safe in your relationship?: Yes
--- NOTE | 2024-10-17 08:34 | W.EDPROG ---
Date of service: 10/17/24 Time of Service: 08:34 Medical Decision Making I initially signed up to evaluate this patient but she was seen by another provider. Please see her note for complete details. Quality:SDOH Health Related Social Needs: No Data to Display Discharge Plan Discharge Details Chief Complaint: Dizzy/Sync Primary Care Provider: Bee Perkins ED Provider: Kathy Vazquez Home Meds and New Rx's Prescriptions: No Action pantoprazole 40 mg tablet,delayed release (DR/EC) 40 mg PO BID pantoprazole [Protonix] 40 mg tablet,delayed release (DR/EC) 40 mg PO BID Qty: 60 12RF azelastine 137 mcg (0.1 %) aerosol,spray 1 spray intranasal BID PRN Rx Instructions: 1-2 sprays administer into each nostril baclofen 10 mg tablet 10 mg PO BID albuterol sulfate [Proventil HFA] 90 mcg/actuation HFA aerosol inhaler 2 puff inhalation Q6H PRN
--- NOTE | 2024-10-17 08:45 | DI.CT_ITS ---
Exam(s) CT HEAD - STROKE PROTOCOL EXAM: CT HEAD - STROKE PROTOCOL CLINICAL HISTORY: dizziness with slurred speech this AM around 5 am. TECHNIQUE: Imaging Protocol: Axial computed tomography images with coronal and sagittal reformatted images were created and reviewed COMPARISON: No exams were available for comparison FINDINGS: There are no skull fractures. There is no fluid in the visualized paranasal sinuses. There is no evidence of intracranial hemorrhage, mass effect, or shift of midline structures. There are no extra-axial fluid collections. The ventricles are not enlarged or shifted and there is no blo od within the ventricular system nor within the basal cisterns. IMPRESSION: No acute intracranial findings on this noninfused CT scan of the brain. Report called by myself to ER physician 10/17/2024 at 9:18 a.m. RADIATION DOSE DELIVERED: 866.1mGy.cm Total DLP DATA REPOSITORY: All CT scans at this facility are submitted to the National Radiology Data Registry (NRDR) Dose Index Registry (DIR) with the [employer] (ACR). RADIATION OPTIMIZATION: All CT scans at this facility use at least one of these dose optimization te chniques: automated exposure control; mA and/or kV adjustment per patient size (includes targeted exa ms where dose is matched to clinical indication); or iterative reconstruction.
--- NOTE | 2024-10-17 08:56 | W.ED.GENAD ---
Discharge Plan Disposition Patient Disposition: Home Condition: Stable Discharge Details Clinical Impression: Dizziness of unknown etiology, Alteration in vision Primary Care Provider: Bee Perkins ED Provider: Elizabeth Kapoor Home Meds and New Rx's Prescriptions: New rosuvastatin 20 mg tablet 20 mg PO QHS Qty: 14 0RF clopidogrel [Plavix] 75 mg tablet 75 mg PO DAILY Qty: 14 0RF Continued pantoprazole 40 mg tablet,delayed release (DR/EC) 40 mg PO BID pantoprazole [Protonix] 40 mg tablet,delayed release (DR/EC) 40 mg PO BID Qty: 60 12RF azelastine 137 mcg (0.1 %) aerosol,spray 1 spray intranasal BID PRN Rx Instructions: 1-2 sprays administer into each nostril baclofen 10 mg tablet 10 mg PO BID albuterol sulfate [Proventil HFA] 90 mcg/actuation HFA aerosol inhaler 2 puff inhalation Q6H PRN Discharge Instructions Additional Instructions: Your workup today was very reassuring. There is no obvious cause of your episode of dizziness/not feeling well today. This should be further worked up with your primary care provider. Please call Dr. Perkins's office first thing in the morning to schedule follow-up appointment. It is recommended that you have an outpatient EEG and ADRIANNE to further evaluate possible seizure or heart issues. She can help coordinate this. Please follow-up with Rober Doyle to further evaluate your vision changes. Return to emergency care if you develop new episodes of passing out, chest pains, vision loss, severe headache, difficulty breathing, bloody stools, or if you are very worried and need to be rechecked again immediately. Referrals: Bee Perkins MD [Primary Care Provider] - [facility] [OTHER] - Discharge Data Discharge Date/Time-TO BE ENTERED AT DEPARTURE: 10/17/24 16:38 HPI <Kathy Cavazos - Last Filed: 10/17/24 16:05> General Date/Time Provider Initiated Documentation: 10/17/24 08:29. HPI Narrative: Jojo is a 69 year old female who presents to the emergency department today for evaluation of feeling unwell. She reports that she woke up this morning around 5 AM, felt unwell when she woke up. She had some dizziness when she was walking, vision went black and then she had rings like an oil spot in her vision. She sat down and was unable to get up from the floor because of dizziness. Family said she had slurred speech during this time. This was accompanied by chest pressure that radiated to her right shoulder, diaphoresis, and nausea. Chest pressure was intermittent, lasting approximately 30 seconds at a time. When she was finally able to get up into a chair she felt like she either had to have a bowel movement or vomit. She had a bowel movement (diarrhea) and felt significantly better. Reports she has had some lower abdominal discomfort to the LLQ with on-and-off constipation that she thinks may be related to IBS. She reports over the last couple of weeks since having COVID she has had intermittent hot/cold flashes, congestion, sore throat, and lingering cough. Also reports her urine feels off like she might have a UTI. Denies recorded fevers, vomiting, recent blood in stool or urine. She has has multiple episodes of chest pressure accompanied by feeling dizziness/oil spots in vision for the last few weeks. She was sent to the ED by day surgery, where she was to have an EGD. Last ate applesauce around midnight. Past medical history is significant for GERD/Barretts esophagus, fibromyalgia, hypoglycemia, IBS. Denies history of cardiac disease. Physical exam reassuring. Patient is alert and oriented, appears anxious but otherwise in no acute distress. PERRL, EOMs intact. No facial droop. Moist membranes. Mild cervical lymphadenopathy noted. Clear voice. Easy work of breathing, lung sounds clear bilaterally. No cough during exam. Normal heart sounds. Abdomen is soft, nondistended, mild tenderness to left lower quadrant. Normoactive bowel sounds. NIHSS 1. D/dx includes but is not limited to: ACS, cardiac arrhythmia, TIA, dehydration, hypoglycemia, electrolyte imbalance, viral illness, diverticulitis. I independently interpreted the following tests: EKG reassuring, normal sinus rhythm rate 63, no changes consistent with acute ischemia. Normal intervals. CBC, CMP, magnesium, UA, and troponins reassuring. Head CT and CTA brain/neck reassuring, no acute findings. CT abdomen/pelvis performed, only very mild streaking around the upper sigmoid noted with no evident diverticuli. While in the emergency department, Jojo received teleneuro consult. Presented case to Dr. Roldan, neurologist. He evaluated patient and has recommended Plavix 300 mg loading dose followed by 75 daily until stroke is ruled out, MRI to rule out stroke. As patient has vision changes with swirling colors, concern for possible seizure and EEG outpatient recommended. He does recommend ophthalmology consult to further evaluate recent vision changes and reported pressure in the right eye. He did recommend labs which I have ordered. MRI reassuring, no acute changes noted. Overall workup today reassuring, unclear etiology of symptoms today. Possibly anxiety versus hypoglycemia versus seizure versus TIA. Recommend close follow-up with PCP for further evaluation. No indication for inpatient admission for teleneurologist due to low suspicion for TIA/stroke. Reviewed discharge instructions with patient, including symptomatic management, medications, outpatient evaluation, and red flags indicating need for return to emergency care Related Data Home Medications ?Medication ?Instructions ?Recorded ?Confirmed albuterol sulfate 90 mcg/actuation 2 puff inhalation Q6H PRN 04/28/24 10/17/24 aerosol inhaler (Proventil HFA) azelastine 137 mcg (0.1 %) nasal 1 spray intranasal BID PRN 04/28/24 10/17/24 spray baclofen 10 mg tablet 10 mg PO BID 04/28/24 10/17/24 pantoprazole 40 mg tablet,delayed 40 mg PO BID 08/14/24 10/17/24 release pantoprazole 40 mg tablet,delayed 40 mg PO BID #60 tabs 08/14/24 10/17/24 release (Protonix) clopidogrel 75 mg tablet (Plavix) 75 mg PO DAILY #14 tabs 10/17/24 rosuvastatin 20 mg tablet 20 mg PO QHS #14 tabs 10/17/24 Previous Rx's ?Medication ?Instructions ?Recorded pantoprazole 40 mg tablet,delayed 40 mg PO BID #60 tabs 08/14/24 release (Protonix) clopidogrel 75 mg tablet (Plavix) 75 mg PO DAILY #14 tabs 10/17/24 rosuvastatin 20 mg tablet 20 mg PO QHS #14 tabs 10/17/24 Allergies Allergy/AdvReac Type Severity Reaction Status Date / Time aspirin AdvReac Severe Pt states Verified 10/17/24 08:24 causes ulcers General Stated Complaint: Dizzy/Sync FERMIN: 3 <DORCAS Bowen - Last Filed: 10/17/24 21:15> HPI Narrative: Jojo is a 69 year old female who presents to the emergency department today for evaluation of feeling unwell. She reports that she woke up this morning around 5 AM, felt unwell when she woke up. She had some dizziness when she was walking, vision went black and then she had rings like an oil spot in her vision. She sat down and was unable to get up from the floor because of dizziness. Family said she had slurred speech during this time. This was accompanied by chest pressure that radiated to her right shoulder, diaphoresis, and nausea. Chest pressure was intermittent, lasting approximately 30 seconds at a time. When she was finally able to get up into a chair she felt like she either had to have a bowel movement or vomit. She had a bowel movement (diarrhea) and felt significantly better. Reports she has had some lower abdominal discomfort to the LLQ with on-and-off constipation that she thinks may be related to IBS. She reports over the last couple of weeks since having COVID she has had intermittent hot/cold flashes, congestion, sore throat, and lingering cough. Also reports her urine feels off like she might have a UTI. Denies recorded fevers, vomiting, recent blood in stool or urine. She has has multiple episodes of chest pressure accompanied by feeling dizziness/oil spots in vision for the last few weeks. She was sent to the ED by day surgery, where she was to have an EGD. Last ate applesauce around midnight. Past medical history is significant for GERD/Barretts esophagus, fibromyalgia, hypoglycemia, IBS. Denies history of cardiac disease. Physical exam reassuring. Patient is alert and oriented, appears anxious but otherwise in no acute distress. PERRL, EOMs intact. No facial droop. Moist membranes. Mild cervical lymphadenopathy noted. Clear voice. Easy work of breathing, lung sounds clear bilaterally. No cough during exam. Normal heart sounds. Abdomen is soft, nondistended, mild tenderness to left lower quadrant. Normoactive bowel sounds. NIHSS 1. D/dx includes but is not limited to: ACS, cardiac arrhythmia, TIA, dehydration, hypoglycemia, electrolyte imbalance, viral illness, diverticulitis. I independently interpreted the following tests: EKG reassuring, normal sinus rhythm rate 63, no changes consistent with acute ischemia. Normal intervals. CBC, CMP, magnesium, UA, and troponins reassuring. Head CT and CTA brain/neck reassuring, no acute findings. CT abdomen/pelvis performed, only very mild streaking around the upper sigmoid noted with no evident diverticuli. While in the emergency department, Jojo received teleneuro consult. Presented case to Dr. Roldan, neurologist. He evaluated patient and has recommended Plavix 300 mg loading dose followed by 75 daily until stroke is ruled out, MRI to rule out stroke. As patient has vision changes with swirling colors, concern for possible seizure and EEG outpatient recommended. He does recommend ophthalmology consult to further evaluate recent vision changes and reported pressure in the right eye. He did recommend labs which I have ordered. MRI reassuring, no acute changes noted. Overall workup today reassuring, unclear etiology of symptoms today. Possibly anxiety versus hypoglycemia versus seizure versus TIA. Recommend close follow-up with PCP for further evaluation. No indication for inpatient admission for teleneurologist due to low suspicion for TIA/stroke. Reviewed discharge instructions with patient, including symptomatic management, medications, outpatient evaluation, and red flags indicating need for return to emergency care 1600 I initially was asked to accept this patient in transition, however all diagnostics returned and the initial provider was able to discharge the patient. I was not directly involved in this case. LAB Review of Systems <Kathy Cavazos - Last Filed: 10/17/24 16:05> Narrative: see HPI Exam <Kathy Cavazos - Last Filed: 10/17/24 16:05> Const General: cooperative, healthy appearing, comfortable, no acute distress and well developed Nutritional Appearance: average body habitus Orientation: alert and oriented x3 HENMT Head: normal to inspection and normocephalic General nose exam: external nose normal Face and sinus: normal facial exam and face symmetric Mouth: oral mucosae normal, lip normal, tongue normal, oropharynx normal and moist mucous membranes Teeth and gingiva: dentition normal Throat: posterior oropharynx normal Eyes Pupils: PERRL EOM: EOM intact bilaterally Neck Neck: normal visual inspection and no lymphadenopathy Resp Effort & Inspection: normal respiratory effort, able to speak in complete sentences and no cough Auscultation: clear to auscultation bilaterally Cardio Rate: regular rate Rhythm: regular rhythm GI Inspection: normal to inspection and non-distended Palpation: soft, not firm, no guarding, not rigid and tender in the LLQ Auscultation: normal bowel sounds Neuro General: patient alert, patient oriented x3, gait normal, tone normal, moves all extremities, no meningeal signs, no focal motor deficits and CN's II-XI intact bilaterally Cranial Nerves: CN's II-XI intact bilaterally, PERRL, EOM intact bilaterally, no nystagmus and facial strength normal Cognition: normal cognition Speech: speech normal Gait: normal gait Motor: muscle tone normal throughout and strength 5/5 throughout Sensory Exam: no sensory deficits noted Coordination: [id number] test normal and Does not sway with eyes open Course <Kathy Emigdio BlevinsJose [facility] Filed: 10/17/24 16:05> Vital Signs Vital signs: Vital Signs Temperature 36.8 C 10/17/24 08:18 Pulse 70 10/17/24 08:18 Respiratory Rate 18 10/17/24 08:18 Blood Pressure 151/107 H 10/17/24 08:18 Pulse Oximetry 94 10/17/24 08:18 Temperature 36.8 C 10/17/24 08:18 Temperature Source Oral 10/17/24 08:18 Pulse 70 10/17/24 08:18 Respiratory Rate 18 10/17/24 08:18 Blood Pressure 151/107 H 10/17/24 08:18 Pulse Oximetry 94 10/17/24 08:18 Medical Decision Making <Kathy Emigdio BlevinsJose [facility] Filed: 10/17/24 16:05> Imaging Data Radiologic Study: Radiologist's impression: Exam(s) CT BRAIN NECK CTA EXAM: CT BRAIN NECK CTA CLINICAL HISTORY: dizziness with slurred speech. TECHNIQUE: Imaging Protocol: Axial CT angiography was performed with multi-slice acquisition and multi-planar and/or 3D reconstructions. CONTRAST MATERIAL: Intravenous: Omnipaque 350 Contrast volume:structured data in ml COMPARISON: CT CT HEAD - STROKE PROTOCOL from 10/17/2024 FINDINGS: CTA Neck W: Aortic arch anatomy: The aortic arch anatomy is conventional and there is no significant stenosis at the origin of the great vessels off of the aortic arch. No intimal flap evident. Anterior circulation: Both common carotid arteries ascend with normal luminal diameters. At the level the carotid bulbs and proximal internal carotid arteries there is minimal plaque without hemodynamically significant stenosis evident. Posterior circulation: Both vertebral arteries originate in conventional fashion off of the subclavian arteries and there is no obvious stenosis at the origin of the vertebral arteries. Both vertebral arteries exhibit normal and approximately equal luminal diameters within the foramen transversarium. Both vertebral arteries contribute to the formation of the basilar artery at the skull base. Posterior inferior cerebellar arteries, off the bilateral vertebral arteries the skull base. CTA Brain W: Anterior circulation: Both internal carotid arteries are patent in the skull base-carotid canals as well as within the cavernous sinuses. The supraclinoid aspects of the ICAs are patent. Both A1 segments are patent as are the anterior cerebral arteries and there is no evidence of aneurysm at the level of the anterior communicating artery. Both middle cerebral arteries are patent with no evidence of significant stenosis nor intraluminal thrombus. There also no aneurysms of these vessels. Posterior circulation: The basilar artery ascends in the midline. Distally it gives off patent bilateral superior cerebellar arteries. Above this level the basilar artery terminates as patent bilateral posterior cerebral arteries. There is a posterior communicating artery on the left side of the [id number] adding to the flow within the patent left posterior cerebral artery. There is no evidence of aneurysm at the tip of the basilar artery nor elsewhere in the aspnss-on-Bsnscz. CT BRAIN: There is no evidence of intracranial hemorrhage, mass effect, or shift of midline structures. There are no extra-axial fluid collections. Ventricles are not enlarged or shifted. There are no ring enhancing lesions in the brain and no abnormal meningeal enhancement. IMPRESSION: 1. Patent carotid arteries in the neck. No hemodynamically significant stenosis. No dissection 2. Patent vertebral arteries. No stenosis nor dissection 3. Patent intracranial arteries. No stenosis nor occlusion. No aneurysms. 4. No ring enhancing lesions in the brain. No abnormal meningeal enhancement. No hemorrhage. No mass Radiologic Study #2: Radiologist's impression: Exam(s) CT HEAD - STROKE PROTOCOL EXAM: CT HEAD - STROKE PROTOCOL CLINICAL HISTORY: dizziness with slurred speech this AM around 5 am. TECHNIQUE: Imaging Protocol: Axial computed tomography images with coronal and sagittal reformatted images were created and reviewed COMPARISON: No exams were available for comparison FINDINGS: There are no skull fractures. There is no fluid in the visualized paranasal sinuses. There is no evidence of intracranial hemorrhage, mass effect, or shift of midline structures. There are no extra-axial fluid collections. The ventricles are not enlarged or shifted and there is no blood within the ventricular system nor within the basal cisterns. IMPRESSION: No acute intracranial findings on this noninfused CT scan of the brain. Radiologic Study #3: Radiologist's impression: Exam(s) MR BRAIN WO/W EXAM: MR BRAIN WO/W CLINICAL HISTORY: ?TIA. TECHNIQUE: Multiplanar multisequence MRI of the brain was performed. CONTRAST MATERIAL: IV Contrast: 13 ML of Dotarem contrast administered. COMPARISON: CT CT HEAD - STROKE PROTOCOL from 10/17/2024 FINDINGS: VENTRICLES AND EXTRA AXIAL SPACES: Normal in size and morphology for the patient's age. HEMORRHAGE: None. CEREBRAL PARENCHYMA: No focus of restricted diffusion to suggest acute infarct. No space-occupying lesion identified. No high signal foci in the white matter. BRAINSTEM/CEREBELLUM: Normal. CALVARIUM: Normal. ENHANCEMENT: No suspicious enhancement identified. VISUALIZED PARANASAL SINUSES/MASTOIDS: Clear. Orbits: Unremarkable. Pituitary: Not enlarged. Vasculature: Normal flow voids. Normal enhancement of the sinuses. No gross evidence of aneurysm. No visible vascular stenosis. No vascular beating. IMPRESSION: Unremarkable MRI of the brain. Quality:SDOH Health Related Social Needs: No Data to Display PFSH <Kathy Cavazos - Last Filed: 10/17/24 16:05> All Active Problems (Updated 10/17/24 @ 15:33 by Kathy Cavazos) Alteration in vision (Acute) Dizziness of unknown etiology (Acute) Syncopal episodes (Chronic) Chronic GERD (Acute) Tendinitis of long head of biceps brachii of left shoulder (Acute) Calcific tendinitis of right shoulder (Acute) Right patellofemoral syndrome (Acute) Right knee pain (Acute) Barretts esophagus (Acute) Hyperplastic colon polyp (Acute) Back pain (Acute) Abdominal pain (Acute) Abnormal CT scan, colon (Acute) Medical History Osteopenia Chronic cough Paresthesia Atypical chest pain Pancreatic cyst Shoulder pain Fibromyalgia Hypoglycemia IBS (irritable bowel syndrome) Hx of adenomatous colonic polyps Surgical History Hx of laparoscopy S/P colonoscopy (~09/2021) S/P laparoscopic cholecystectomy Family History Son Alcohol use disorder Brain cancer Mother Breast cancer Ovarian cancer Father Lung cancer Metastatic to Brain Social History Smoking/Tobacco Use Status: Former Tobacco Use tobacco type: cigarettes Quit Date: 11/08/85 Pack-years: 40 Smoking risk assessment performed?: Yes Alcohol Intake: former Year quit: 2020 Details: stopped drinking to try and keep son sober Drug use: Never Substance use type: does not use Household members: spouse and children Housing: house Current gender identity: female Do you feel safe at home: Yes Do you feel safe in your relationship?: Yes
[2024-10-17 09:20] LABS: Abs Immature Grans 0.02 10^3/uL (0.0-0.06); Absolute Basophil Count 0.02 10^3/uL (0.0-0.2); Absolute Eosinophil Count 0.03 10^3/uL (0.0-0.7); Absolute Lymphocyte Count 1.87 10^3/uL (1.2-3.4); Absolute Monocyte Count 0.41 10^3/uL (0.1-0.8); Absolute Neutrophil Count 3.38 10^3/uL (1.2-6.7); Basophils % 0.3 %; Eosinophils % 0.5 %; HCT 37.8 % (36.0-46.0); HGB 12.7 g/dL (11.2-15.7); Immature Grans % 0.3 %; Lymphocytes % 32.6 %; MCH 30.5 pg (27.0-33.0); MCHC 33.6 % (32.0-36.0); MCV 91 fL (80-95); MPV 9.2 fL (8.0-11.0); Monocytes % 7.2 %; Neutrophils % 59.1 %; Platelet Count 232 10^3/uL (130-400); RBC 4.16 10^6/uL (3.93-5.22); RDW 12.6 % (11.7-14.6); RDW-SD 41.7 fL; WBC 5.73 10^3/uL (4.4-10.8)
[2024-10-17 09:36] LABS: ALT 18 U/L (14-59); AST 19 U/L (15-37); Alkaline Phosphatase 95 U/L (46-116); Anion Gap 5.6 mmol/L (3-11); BUN 10 mg/dL (7-18); CO2 31.4 mmol/L (21.0-32.0); Calcium 9.5 mg/dL (8.5-10.1); Chloride 107 mmol/L (98-107); Estimated GFR 61.36 (mL/min/1.73m2); Glucose 94 mg/dL (74-106); Potassium 3.8 mmol/L (3.5-5.1); Sodium 144 mmol/L (136-145); Total Protein 7.4 g/dL (6.4-8.2); Troponin I 4 ng/L (<or=51)
[2024-10-17 09:48] LABS: Bilirubin Negative (Negative); Blood Negative (Negative); Clarity Clear (Clear); Glucose Negative (Negative); Ketones Negative (Negative); Leukocyte Esterase Negative (Negative); Nitrite Negative (Negative); Urobilinogen 0.2 mg/dL (Up to 0.2)
--- NOTE | 2024-10-17 10:00 | DI.CT_ITS ---
Exam(s) CT BRAIN NECK CTA EXAM: CT BRAIN NECK CTA CLINICAL HISTORY: dizziness with slurred speech. TECHNIQUE: Imaging Protocol: Axial CT angiography was performed with multi-slice acquisition and mu lti-planar and/or 3D reconstructions. CONTRAST MATERIAL: Intravenous: Omnipaque 350 Contrast volume:structured data in ml COMPARISON: CT CT HEAD - STROKE PROTOCOL from 10/17/2024 FINDINGS: CTA Neck W: Aortic arch anatomy: The aortic arch anatomy is conventional and there is no significant stenosis at the origin of the great vessels off of the aortic arch. No intimal flap evident. Anterior circulation: Both common carotid arteries ascend with normal luminal diameters. At the level the carotid bulbs and proximal internal carotid arteries there is minimal plaque without hemodynamically significant stenosis evident. Posterior circulation: Both vertebral arteries originate in conventional fashion off of the subclavian arteries and there is no obvious stenosis at the origin of the vertebral arteries. Both vertebral arteries exhibit normal and approximately equal luminal diameters within the foramen t ransversarium. Both vertebral arteries contribute to the formation of the basilar artery at the skull base. Posteri or inferior cerebellar arteries, off the bilateral vertebral arteries the skull base. CTA Brain W: Anterior circulation: Both internal carotid arteries are patent in the skull base-carotid canals as well as within the cave rnous sinuses. The supraclinoid aspects of the ICAs are patent. Both A1 segments are patent as are the anterior cer ebral arteries and there is no evidence of aneurysm at the level of the anterior communicating artery . Both middle cerebral arteries are patent with no evidence of significant stenosis nor intraluminal th rombus. There also no aneurysms of these vessels. Posterior circulation: The basilar artery ascends in the midline. Distally it gives off patent bilateral superior cerebella r arteries. Above this level the basilar artery terminates as patent bilateral posterior cerebral arteries. Ther e is a posterior communicating artery on the left side of the [id number]-ok-[id number] adding to the flow wit hin the patent left posterior cerebral artery. There is no evidence of aneurysm at the tip of the basilar artery nor elsewhere in the [id number]-ij-[id number] is. CT BRAIN: There is no evidence of intracranial hemorrhage, mass effect, or shift of midline structures. There are no extra-axial fluid collections. Ventricles are not enlarged or shifted. There are no ring enh ancing lesions in the brain and no abnormal meningeal enhancement. IMPRESSION: 1. Patent carotid arteries in the neck. No hemodynamically significant stenosis. No dissection 2. Patent vertebral arteries. No stenosis nor dissection 3. Patent intracranial arteries. No stenosis nor occlusion. No aneurysms. 4. No ring enhancing lesions in the brain. No abnormal meningeal enhancement. No hemorrhage. No ma ss. Report called by myself to ER provider 10/17/2024 at 10:50 a.m. RADIATION DOSE DELIVERED: 1,198.11mGy.cm Total DLP DATA REPOSITORY: All CT scans at this facility are submitted to the National Radiology Data Registry (NRDR) Dose Index Registry (DIR) with the [employer] (ACR). RADIATION OPTIMIZATION: All CT scans at this facility use at least one of these dose optimization te chniques: automated exposure control; mA and/or kV adjustment per patient size (includes targeted exa ms where dose is matched to clinical indication); or iterative reconstruction.
[2024-10-17] MEDS: Normal Saline - Diluent 50 ML VIAL IJ (10:24)
[2024-10-17] MEDS: Omnipaque 350 MG/ML 100 ML BTL 70 ML IJ (10:25)
[2024-10-17 11:12] LABS: Troponin I 6 ng/L (<or=51)
--- NOTE | 2024-10-17 11:15 | DI.CT_ITS ---
Exam(s) CT ABDOMEN PELVIS WO EXAM: CT ABDOMEN PELVIS WO CLINICAL HISTORY: LLQ pain. TECHNIQUE: Imaging Protocol: Axial computed tomography images with coronal and sagittal reformatted images were created and reviewed CONTRAST MATERIAL: Intravenous: none. There is intravenous contrast in the urinary bladder kidneys due to CT angiogram performed earlier same date. The patient was not reinjected for this abdominal s tudy. Oral: None COMPARISON: CT CT ABDOMEN PELVIS W from 03/09/2022 FINDINGS: VISUALIZED LUNG BASES: No nodules nor pleural effusions evident. ABDOMEN: There is no ascites. LIVER: There are no obvious focal hepatic lesions evident of this noninfused study. GALLBLADDER/BILIARY: The gallbladder surgically absent. CBD is not dilated. PANCREAS: No evidence of pancreatic mass nor dilatation of the pancreatic duct. SPLEEN: Spleen is not enlarged. No obvious intrasplenic lesions. ADRENALS: There are no significant adrenal masses. KIDNEYS:No cysts evident. No solid renal masses. No calculi nor hydronephrosis. . ABDOMINAL AORTA: Abdominal aorta is not enlarged. LYMPH NODES: There is no retroperitoneal nor paraaortic adenopathy. ABDOMINAL WALL: No evidence of significant anterior abdominal wall nor inguinal hernia. GI: There is no evidence of bowel obstruction, free air, nor abscess. There is very mild streaking in the upper left iliac fossa around the upper sigmoid at this level but there are no obvious diverticuli in this region. PELVIS: LYMPH NODES: There is no intrapelvic nor inguinal adenopathy. GI: No evidence of appendicitis. URINARY BLADDER: Unremarkable REPRODUCTIVE: Uterus and regions unremarkable. OSSEOUS: No significant osseous lesions. No fractures. Schmorl's node invagination in inferior endplate of L2 vertebral body. Mild degenerat donavan anterolisthesis L3 upon L4 related to facet joint degenerative changes. Mild disc space narrowin g at L4-5 and L5-S1 levels. IMPRESSION: 1. Gallbladder surgically absent. The biliary tree is not dilated. 2. Very mild streaking around the upper sigmoid within the upper left iliac fossa. There no divertic torito evident in this region. This finding is of questionable significance. No evidence of obvious ep iploic appendagitis. 3. No evidence of appendicitis. Report called by myself to ER provider RADIATION DOSE DELIVERED: 401.19mGy.cm Total DLP DATA REPOSITORY: All CT scans at this facility are submitted to the National Radiology Data Registry (NRDR) Dose Index Registry (DIR) with the [employer] ([employer]). RADIATION OPTIMIZATION: All CT scans at this facility use at least one of these dose optimization te chniques: automated exposure control; mA and/or kV adjustment per patient size (includes targeted exa ms where dose is matched to clinical indication); or iterative reconstruction.
--- NOTE | 2024-10-17 12:00 | DI.MRI_ITS ---
Exam(s) MR BRAIN WO/W EXAM: MR BRAIN WO/W CLINICAL HISTORY: ?TIA. TECHNIQUE: Multiplanar multisequence MRI of the brain was performed. CONTRAST MATERIAL: IV Contrast: 13 ML of Dotarem contrast administered. COMPARISON: CT CT HEAD - STROKE PROTOCOL from 10/17/2024 FINDINGS: VENTRICLES AND EXTRA AXIAL SPACES: Normal in size and morphology for the patient's age. HEMORRHAGE: None. CEREBRAL PARENCHYMA: No focus of restricted diffusion to suggest acute infarct. No space-occupying le breann identified. No high signal foci in the white matter. BRAINSTEM/CEREBELLUM: Normal. CALVARIUM: Normal. ENHANCEMENT: No suspicious enhancement identified. VISUALIZED PARANASAL SINUSES/MASTOIDS: Clear. Orbits: Unremarkable. Pituitary: Not enlarged. Vasculature: Normal flow voids. Normal enhancement of the sinuses. No gross evidence of aneurysm. No visible vascular stenosis. No vascular beating. IMPRESSION: Unremarkable MRI of the brain. DATA REPOSITORY:
[2024-10-17 13:17] LABS: TSH (W/Ref FT4) 1.94 uIU/mL (0.36-3.74)
[2024-10-17] MEDS: Clopidogrel 300 MG TAB PO (14:13)
[2024-10-17 14:28] LABS: INR 1.1 (0.9-1.1); PTT Activated 25.4 sec (23.6-32.8); Prothrombin Time 10.6 sec (9.1-11.1)
[2024-10-17 14:31] LABS: Calculated LDL 94 mg/dL (<100); Cholesterol 205 mg/dL (<200); HDL Cholesterol 103 mg/dL (40-60); Triglyceride 42 mg/dL (<150)
[2024-10-17 14:33] LABS: Hemoglobin A1C 5.6 % (<5.7)
[2024-10-17 14:33] LABS: ETHANOL BLOOD < 3.0 mg/dL (<10)
[2024-10-17 14:34] LABS: *AMPHETAMINES SCREEN URINE Negative (Negative); *BARBITURATES SCREEN URINE Negative (Negative); *BENZODIAZEPINES SCREEN URINE Negative (Negative); Cannabinoids THC Negative (Negative); Cocaine Screen,Urine Negative (Negative); METHADONE URINE SCREEN Negative (Negative); OPIATES URINE SCREEN Negative (Negative)
[2024-10-17 14:35] LABS: Tricyclic Antidepressants Negative (Negative)
[2024-10-17] MEDS: Gadoterate meglumine 20 ML SYRINGE 13 ML IVP (15:46)
[2024-10-17] MEDS: Rosuvastatin 20 MG TAB PO (16:10)
== END 2024-10-17 16:38 | disposition home or self-care (01) ==
PROVIDERS: Nurse Practitioner Family; Emergency Provider Physician Assistant; PCP Family Medicine
DX: R42 Dizziness and giddiness (principal); H53.9 Unspecified visual disturbance; Z87.891 Personal history of nicotine dependence
CPT/HCPCS: 00123; 36415; 70496; 70498; 70553; 80053; 80061; 80307; 87426; 93005; 99285; 70450; 74176; 80320; 81003; 83036; 83735; 84443; 84484; 85025; 85610; 85730; 93010; J3490

== ENCOUNTER 2024-11-06 03:29 | Outpatient (CLI) | payer SELFPAY ==
--- NOTE | 2024-11-07 10:48 | PDOC.EEG_ITS ---
Neurology EEG EEG: [facility] Department of Neurology EEG REPORT Date of Recordin11/06/24 Interpreting Physician: Dr. Peral Moore PCP/Referring Provider: Dr. Bee Perkins Reason for study: Jojo Lofton is a 69 year-old with Current Medications: METHODS: A 21 channel digitized electroencephalogram was performed in the [facility]iology [facility]. The 10/20 international system of electrode placement was used and bipolar and referential electrode montages were recorded. In addition to EEG the patient was monitored for EKG and lateral/vertical eye movements. Activation procedures of photic stimulation and hyperventilation were performed if applicable. Video was used during activation procedures and during events where applicable. The duration of the recording was 30 minutes. DESCRIPTION OF EEG: The patient was noted to be awake and drowsy during the recording. During maximal wakefulness a 10-Hz posterior background rhythm was present which was well-modulated, symmetrical, reactive to eye opening, and of moderate voltage. With eye opening the background activity changed to a low voltage mixture of alpha, beta, and occasional theta range frequencies. Faster frequencies were present in the bilateral anterior head regions. There was a normal anterior- posterior voltage gradient. During drowsiness, there was attenuation of the posterior dominant background rhythm and vertex waves. No definite sleep was obtained. There was a single T5 sharp-wave at 16:35:31 that was not clearly epileptic. During the recording, there were occasional 1 second bursts of bitemporal, non- rhythmic, synchronous, moderate-amplitude delta slowing. Activating Procedures: Photic stimulation was performed which produced no posterior driving response. Hyperventilation was performed with moderate effort and produced no physiological slowing of the background. EKG: EKG revealed normal sinus rhythm. INTERPRETATION: This EEG is abnormal due to occasional bitemporal, non-rhythmic, synchronous delta slowing. PRIOR EEG: none CLINICAL CORRELATION: The above slowing is of broad differential including secondary to drowsiness vs suggestive of a mild diffuse cerebral encephalopathy of broad differential including toxic-metabolic etiology. No definite epileptiform activity was present. Clinical correlation is advised. Perla Moore MD Date of service: 11/06/24
== END 2024-11-06 03:30 | disposition home or self-care (01) ==
LOC: RT 03:29
PROVIDERS: PCP Family Medicine; Visit Provider Psychiatry & Neurology Neurology
DX: R55 Syncope and collapse (principal); R94.01 Abnormal electroencephalogram [EEG]
CPT/HCPCS: 95816

== ENCOUNTER 2024-12-21 11:47 | Outpatient (CLI) | payer SELFPAY ==
--- NOTE | 2024-12-21 12:21 | W.CARDEVENT ---
Date of service: 12/21/24 Time of Service: 12:21 Cardiac Event Recorder Referring Provider:: Bee Perkins Indications:: Transient cerebral ischemia Cardiac Event Note: This is a cardiac event monitor. Patient was monitored for 28 days and 8 hours. Rhythm throughout was sinus with an average heart rate of 67. Minimum was 56, maximum 109. There were no significant ventricular dysrhythmias. There was no atrial fibrillation, no high-grade AV block, no greater than 3 seconds. Symptoms were reported all of which correlated to sinus rhythm, not with any dysrhythmia
== END 2024-12-21 11:48 | disposition home or self-care (01) ==
LOC: CARDOPNVT 11:47
PROVIDERS: PCP Family Medicine; Visit Provider Internal Medicine Cardiovascular Disease
DX: G45.9 Transient cerebral ischemic attack, unspecified (principal)

== ENCOUNTER 2025-01-22 10:51 | Outpatient (REF) | payer MEDICARE, SELFPAY ==
[2025-01-22 16:15] LABS: Vitamin B12 510 pg/mL (193-986)
== END 2025-01-22 10:52 | disposition home or self-care (01) ==
LOC: NCHCN 10:51
PROVIDERS: PCP Family Medicine; Visit Provider Family Medicine
DX: E53.8 Deficiency of other specified B group vitamins (principal)
CPT/HCPCS: 82607

== ENCOUNTER 2025-03-09 01:33 | Outpatient (CLI) | payer MEDICARE, SELFPAY ==
--- NOTE | 2025-03-09 | DI.MAMMO_ITS ---
Exam(s) MAMMO SCREENING EXAM: MAMMO SCREENING CLINICAL HISTORY: screening Z12.31 TECHNIQUE: Mammograms were interpreted according to the usual protocol including computer analysis w [employer] CAD system, tomosynthesis and C-view imaging. COMPARISON: 2021 and 2022 FINDINGS: The breasts are composed of scattered fibroglandular densities, Breast Density category B. No suspicious masses or suspicious microcalcifications are seen. No skin thickening or abnormal axillary lymph nodes are seen. There has been no significant change from prior exams. IMPRESSION: BI-RADS Category 1, Negative mammogram Yearly screening mammography is recommended. Breast Density - Category B, scattered fibroglandular densities. Breast density Category C or D implies that the patient has dense breast tissue. Dense breast tissue can make it harder to find cancer on a mammogram. Dense breast tissue is also associated with an incr eased risk of breast cancer. This information about the result of the mammogram report was provided to the patient to raise their awareness. Use this report when you speak with the patient about their risks for breast cancer, which includes their family history. At that time, you may recommend additional screening tests (Ultrasoun d or MRI) as these tests may add significant information. A negative radiographic report should not delay biopsy if a dominant or clinically suspicious mass is present. Up to ten percent of cancers are not identified on mammography. A negative report may reinforce clinical impression. Adenosis and dense breasts may obscure an underlying neoplasm. False positive reports average 6 to 10%. Patient will receive a letter notifying them of these results.
== END 2025-03-09 01:53 ==
PROVIDERS: PCP Family Medicine; Visit Provider Family Medicine
DX: Z12.31 Encounter for screening mammogram for malignant neoplasm of breast (principal); R92.323 Mammographic fibroglandular density, bilateral breasts
CPT/HCPCS: 77063; 77067

== ENCOUNTER 2025-04-25 08:18 | Outpatient (CLI) | payer MEDICARE, SELFPAY ==
[2025-04-25 10:05] LABS: Vitamin B12 321 pg/mL (193-986)
== END 2025-04-25 08:19 | disposition home or self-care (01) ==
LOC: LBO 08:18
PROVIDERS: PCP Family Medicine; Visit Provider Family Medicine
DX: E53.8 Deficiency of other specified B group vitamins (principal)
CPT/HCPCS: 82607

== ENCOUNTER → 2025-05-31 14:26 | Outpatient (BNVA) | payer MEDICARE, SELFPAY | PROVIDERS: PCP Family Medicine; Referring Provider Family Medicine; Visit Provider Surgery | DX: K22.70 Barrett's esophagus without dysplasia (principal) | CPT/HCPCS: 99213 ==

== ENCOUNTER → 2025-09-10 12:53 | Outpatient (BNVA) | payer MEDICARE, SELFPAY | PROVIDERS: PCP Family Medicine; Referring Provider Family Medicine; Visit Provider Nurse Practitioner Gerontology | DX: R35.0 Frequency of micturition (principal); N39.46 Mixed incontinence; R33.9 Retention of urine, unspecified | CPT/HCPCS: 99215; 81002; 51798 ==